=== PATIENT | male | born 1990 | race Caucasian/White ===

== ENCOUNTER 2016-07-22 09:56 | Day surgery (SDC) | payer MEDICAID ==
[~2016-07-22] VITALS: Ht 180.3 cm; Wt 154.1 kg
--- NOTE | 2016-07-22 11:35 | NUR ---
Received SAD person referral from [facility]. Spoke with pt. Pt lives at a mental health assisted living facility in [place]. He sees his counselor weekly. The facility administers his medications to him. Pt denies current thoughts of self harm and denies a plan to harm self.
--- NOTE | 2016-08-18 11:41 | OR ---
ADMIT: 07/22/2016 RM/LOC: [facility] MR#: [id number] [address] [place] [address] [place] [id number] Operative/Delivery Room Report SEX: M AGE: 25 : 1990 Corrected: 07/25/2016 0631 [facility] SURGERY DATE: 07/22/2016 SURGEON: Anatoliy Sin MD CUSTOM DESIGNER: Anthony Nelson MD. PRE PROCEDURE DIAGNOSIS: Chronic cholecystitis. POSTPROCEDURE DIAGNOSIS: Chronic cholecystitis. PROCEDURE: Laparoscopic cholecystectomy with intraoperative cholangiogram. INDICATIONS: The patient is a 25-year-old, who presents with signs, symptoms, and radiographic evidence consistent with chronic cholecystitis who presents for laparoscopic cholecystectomy. FINDINGS: The patient was taken to the operating room. General endotracheal anesthesia was induced. The patient's abdomen was prepped and draped in normal sterile fashion. The case was begun by making a transverse, supraumbilical 5- mm skin incision using #11 blade. A retractable 5-mm port was placed within the abdomen, the abdomen was insufflated with CO2 to an intra-abdominal pressure of 15 mmHg. A camera was placed showing no bowel or vascular injury. A midepigastric 11-mm port as well as 2 right upper quadrant 5-mm ports were placed under direct vision. The case was begun by grasping the thickened, inflamed gallbladder at the fundus with an atraumatic clamp. A second atraumatic clamp was then used to grab the infundibulum. A [place] instrument with electrocautery was used to dissect out the cystic duct and artery without difficulty. A proximal clip was placed on the duct. The duct was cut in half. The cholangiogram catheter was passed and a cholangiogram was shot showing no filling defects with contrast flow into the duodenum as well as intrahepatic ductal filling of contrast. The cholangiogram catheter was then removed. Three distal cystic duct clips were applied. Remainder of the duct was then severed. We then identified the cystic artery with one proximal and one distal clip and the artery was severed. The remainder of dissection was then carried out using electrocautery from a [id number] fashion, removing the gallbladder from liver bed. The gallbladder was placed in EndoCatch bag and brought out ADMIT: 07/22/2016 RM/LOC: [facility] MR#: [id number] [address] [address] [place] [address] Operative/Delivery Room Report SEX: M AGE: 25 : 1990 through the midepigastric port site. On reexamination of the operative site, there was a small amount of liver bed bleeding, controlled electrocautery. The area was then irrigated and suctioned out. 0.5% Marcaine was injected subdermally, subfascially for postoperative analgesia. The midepigastric fascial incision was closed with a [id number] 0 Polysorb suture passer. The air was desufflated. The port sites removed. The skin sites were closed with interrupted 4-0 Vicryl subcuticular skin stitches. Wounds were cleaned and dried. Steri-Strips and Tegaderm were applied over the top. Needle, sponge, and instrument counts were correct at the end of case. The patient was extubated and went to recovery in good condition. Anatoliy Sin MD/ yue JOB #: [id number] CC: Anatoliy Sin, Attending Physician Chuy Brooks, Family Physician Corrected: 07/25/2016 0631 [email or web address]
== END 2016-07-22 16:00 | disposition home or self-care (01) ==
LOC: SSS 09:56
PROC: 0FT44ZZ Resection of Gallbladder, Percutaneous Endoscopic Approach (ICD-10-PCS; principal; 2016-07-22)
PROC: BF03YZZ Plain Radiography of Gallbladder and Bile Ducts using Other Contrast (ICD-10-PCS; principal; 2016-07-22)
DX: K80.12 Calculus of gallbladder with acute and chronic cholecystitis without obstruction (principal); K21.9 Gastro-esophageal reflux disease without esophagitis; E78.5 Hyperlipidemia, unspecified; F20.9 Schizophrenia, unspecified; E66.9 Obesity, unspecified; Z68.42 Body mass index [BMI] 45.0-49.9, adult; Z98.890 Other specified postprocedural states